=== PATIENT | female | born 1995 | race African-American/Black ===

== ENCOUNTER 2021-06-07 23:01 | Emergency (ER) | payer OTHER ==
[~2021-06-07] VITALS: Ht 172.7 cm; Wt 98.0 kg
[2021-06-08] MEDS ORDERED: IPRATROPIUM BROM 0.5 MG/2.5ML INH SOL NEB ONE (01:45)
[2021-06-08] MEDS ORDERED: ALBUTEROL SULF 2.5 MG/0.5ML(0.5%) NEB SOLN NEB ONE ×2 (01:45→02:00)
[2021-06-08 03:20] VITALS: BP 133/78
== END 2021-06-08 03:26 | disposition home or self-care (01) ==
LOC: ER 23:01
DX: J45.901 Unspecified asthma with (acute) exacerbation (principal)
CPT/HCPCS: 71045; 81025; 94640; 94644; 99285; J7644